=== PATIENT | male | born 1990 | race Caucasian/White ===

== ENCOUNTER 2020-11-14 13:03 | Emergency (ER) | payer MEDICAID, OTHER ==
[~2020-11-14] VITALS: Ht 172.7 cm; Wt 49.9 kg
[2020-11-14 16:27] VITALS: BP 145/94
== END 2020-11-14 16:32 | disposition home or self-care (01) ==
LOC: ER 13:03
DX: H53.8 Other visual disturbances (principal); R20.0 Anesthesia of skin; F12.10 Cannabis abuse, uncomplicated
CPT/HCPCS: 70450; 82962